=== PATIENT | female | born 1990 | race African-American/Black ===

== ENCOUNTER 2018-03-08 12:32 | Emergency (ER) | payer MEDICAID ==
[~2018-03-08] VITALS: Ht 185.4 cm; Wt 90.0 kg
[2018-03-08 12:41] VITALS: BP 120/82
[2018-03-08] MEDS ORDERED: DEXAMETHASONE 4 MG TABLET ONE (13:16)
[2018-03-08] MEDS ORDERED: DEXAMETHASONE 4 MG/ML, 1ML PO ONE (13:30)
== END 2018-03-08 13:33 | disposition home or self-care (01) ==
LOC: ED 13:27
DX: L20.84 Intrinsic (allergic) eczema (principal); Z76.0 Encounter for issue of repeat prescription; J45.909 Unspecified asthma, uncomplicated
CPT/HCPCS: 93005; 99283; J1100